=== PATIENT | female | born 1955 | race Caucasian/White ===

== ENCOUNTER → 2020-09-06 | Outpatient (CLI) | payer OTHER, MEDICARE | LOC: SJCVC 09:45 | PROVIDERS: ATTEND Internal Medicine Cardiovascular Disease | DX: R94.31 Abnormal electrocardiogram [ECG] [EKG] (principal); R06.02 Shortness of breath; R94.39 Abnormal result of other cardiovascular function study; I10 Essential (primary) hypertension; E78.00 Pure hypercholesterolemia, unspecified; G47.33 Obstructive sleep apnea (adult) (pediatric); R07.9 Chest pain, unspecified; M19.90 Unspecified osteoarthritis, unspecified site; K21.9 Gastro-esophageal reflux disease without esophagitis; E78.5 Hyperlipidemia, unspecified; G40.909 Epilepsy, unspecified, not intractable, without status epilepticus; M81.0 Age-related osteoporosis without current pathological fracture; F32.9 Major depressive disorder, single episode, unspecified; Z99.89 Dependence on other enabling machines and devices; Z79.899 Other long term (current) drug therapy; Z87.891 Personal history of nicotine dependence; Z72.89 Other problems related to lifestyle; Z88.0 Allergy status to penicillin; Z88.5 Allergy status to narcotic agent ==

== ENCOUNTER 2020-09-18 07:41 | Observation (INO) | payer OTHER, MEDICARE ==
[~2020-09-18] VITALS: Ht 157.5 cm; Wt 90.7 kg
[2020-09-18 08:21] LABS: HEMATOCRIT 38.7 % (37.0-47.0); MCH 25.1 pg (26.0-34.0); MCHC 31.1 g/dL (28.0-37.0); MCV 80.6 fL (80.0-100.0); RBC 4.8 mil/uL (4.20-5.00); RDW 21.3 % (10.5-14.5); WBC 5.9 thou/uL (4.0-11.0)
[2020-09-18 08:25] VITALS: BP 152/71
[2020-09-18 08:36] LABS: CALCIUM 8.9 mg/dL (8.5-10.1); CREATININE 0.7 mg/dL (0.6-1.0); POTASSIUM 4.2 mmol/L (3.5-5.1)
[2020-09-18] MEDS ORDERED: VITAMIN D325 MC1 PO (08:36)
[2020-09-18] MEDS ORDERED: OMEPRAZOLE 20 M20 M1 PO (08:37)
[2020-09-18] MEDS ORDERED: ASPIRIN EC81 M1 PO (08:37)
[2020-09-18] MEDS ORDERED: PHENOBARBITAL32.4 M2 PO (08:38)
[2020-09-18] MEDS ORDERED: PRAVASTATIN SOD40 MG PO (08:39)
[2020-09-18] MEDS ORDERED: DILANTIN100 MG PO (08:39)
[2020-09-18] MEDS ORDERED: EFFEXOR XR75 MG PO (08:40)
[2020-09-18] MEDS ORDERED: BYSTOLIC 5 MG5 MG PO (08:41)
[2020-09-18] MEDS ORDERED: TRIAMCINOLONE A15 G1 TOP (08:43)
--- NOTE | 2020-09-18 09:36 | EKG ---
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: SBUL : 1955 Requested By: Jeffrey Otto Order Number: [id number] MD: Ricky Vaughn Measurements Intervals [place] Rate: 86 P: 63 OR: 166 QRS: 33 QRSD: 84 T: 57 QT: 356 QTc: 426 Interpretive Statements Sinus rhythm Left atrial enlargement Anteroseptal infarct, old Borderline repolarization abnormality Baseline wander in lead(s) III,aVF No previous ECG available for comparison Electronically Signed On 09-18-2020 9:35:57 PLATER APPRENTICE by Ricky Vaughn [email or web address] <ELECTRONICALLY SIGNED> By: Ricky Vaughn MD, [facility] 09/18/20 0935 3 3 Ricky Vaughn MD, [facility] /EPI
--- NOTE | 2020-09-18 16:58 | NUR ---
PT. RESTING IN BED, VERY HELPFUL. SMALL TRACES OF ECCHYMOSIS AT SITE QUARTER SIZED AND MARKED, ONE IS DESCENDING ABOUT HALF INCH LONG AND 1/4 INCH WIDE-ALL ARE MARKED WITH AN INK PEN TO MONITOR IF IT INCREASES. DENIES ANY CHEST PAIN, NO SOB. DAUGHTER AT BEDSIDE-MIKA WILL PICK HER UP IN AM. EATING HER DINNER AND IN GOOD SPIRITS OVERALL.
[2020-09-18 20:01] VITALS: BP 158/83
[2020-09-19 03:51] VITALS: BP 124/75
[2020-09-19 04:48] LABS: HEMATOCRIT 34.3 % (37.0-47.0); HEMOGLOBIN 10.8 gm/dL (12.0-15.0); MCH 25.4 pg (26.0-34.0); MCHC 31.6 g/dL (28.0-37.0); MCV 80.5 fL (80.0-100.0); RBC 4.26 mil/uL (4.20-5.00); RDW 21.1 % (10.5-14.5); WBC 5.8 thou/uL (4.0-11.0)
[2020-09-19 05:01] LABS: ALBUMIN 3.4 g/dL (3.4-5.0); ANION GAP 7 mmol/L (7-16); BUN 8 mg/dL (7-18); CHLORIDE 102 mmol/L (98-107); CO2 31 mmol/L (21-32); CREATININE 0.7 mg/dL (0.6-1.0); GLUCOSE 91 mg/dL (74-106); SGOT 20 U/L (15-37); SGPT 17 U/L (30-65); SODIUM 140 mmol/L (136-145); TOTAL BILIRUBIN 0.2 mg/dL (0.2-1.0); TOTAL PROTEIN 6.6 g/dL (6.4-8.2); TROPONIN-I <0.06 ng/mL (<0.06)
[2020-09-19 05:07] LABS: CALCIUM 8.5 mg/dL (8.5-10.1)
[2020-09-19 07:33] VITALS: BP 122/66
[2020-09-19] MEDS ORDERED: CRESTOR20 MG PO (07:40)
[2020-09-19] MEDS ORDERED: LIPITOR40 MG PO (07:40)
[2020-09-19] MEDS ORDERED: BYSTOLIC 5 MG5 MG PO (07:40)
[2020-09-19] MEDS ORDERED: EFFIENT10 MG PO (07:40)
--- NOTE | 2020-09-19 07:48 | NUR ---
UP INDEPENDENTLY.RIGHT GROIN C/D/I,SOFT,BRUISING NOTED BUT NO HEMATOMA.POC CONTINUED.
--- NOTE | 2020-09-19 09:42 | EKG ---
[address] [address] ELECTROCARDIOGRAM REPORT Name: PAUL CADE Room #: 208-P [facility] M.R.#: [id number] Admission: 09/18/20 Attend Phys: Jeffrey Otto MD, Discharge: Date of : 51 Report #: [id number] [facility] Test Date: 2020-09-19 Test Time: 07:10:16 Pat Name: PAUL CADE Department: Room: 208 P Gender: F Email Production Specialist: LUIS : 1955 Requested By: Debra Malave Order Number: [id number] MD: Ricky Vaughn Measurements Intervals [place] Rate: 78 P: 64 AR: 162 QRS: 33 QRSD: 78 T: 173 QT: 394 QTc: 449 Interpretive Statements Sinus rhythm Abnrm T, consider ischemia, anterolateral lds Compared to ECG 09/18/2020 08:14:05 Possible ischemia now present Atrial abnormality no longer present Myocardial infarct finding no longer present Electronically Signed On 09-19-2020 9:42:09 FORM BUILDER HELPER by Ricky Vaughn [email or web address] <ELECTRONICALLY SIGNED> By: Ricky Vaughn MD, [facility] 09/19/20 0942 0710 0710 Ricky Vaughn MD, [facility] /EPI
[2020-09-19 10:41] VITALS: BP 122/66
--- NOTE | 2020-09-19 11:05 | NUR ---
ASSUMED CARE SHIFT CHANGE. ASSESSMENT CHARTED.MEDS GIVEN. R GROIN SITE BRUISING NOTED, DRSNG DRY WITH DRY DRAINAGE. NO HEMATOMA. DC ORDERS ACKNOWLEDGED AND IMPLEMENTED. IV REMOVED TELE REMOVED. PT LEFT UNIT WITH ALL BELONGINGS.
--- NOTE | 2020-09-19 17:29 | CATHLAB ---
[facility] [place] [address] INVASIVE PROCEDURE REPORT Name: PAUL CADE Room #: 208-P [facility] Patricia Emery#: [id number] Admission: 09/18/20 Attend Phys: Jeffrey Otto MD, Discharge: 09/19/20 Date of : 51 Report #: [id number] THIS REPORT FOR: cc: Eliseo Gary Jeffrey W. DO Mancuso, Gerald M. MD [facility] ~ APPROVED REPORT Study performed: 09/18/2020 08:10:30 Patient Details The patient is a 65 year-old female Event Personnel Jeffrey Otto Lan Engineer, Garth Cagle RN, Liam Camara RTR Scrub, Bashir Jansen RTR Monitor Procedures Performed Art Access - R femoral artery* Steve Access - R femoral vein Right and Left Heart Cath w/or w/o Coronaries 9313327 ELKIN Place w/wo Plasty Single LAD 341670 ELKIN Place w/wo Plasty Single OM [id number] Abdominal Aortography 624315 Hemostasis w/ Mynx Procedure Narrative The Right Groin^ was infiltrated with 1% Lidocaine subcutaneous anesthesia. A PINNACLE 6FR TIF Sheath #[id number] sheath was inserted into the RFA^. Coronary angiography was performed using coronary diagnostic catheters. The right coronary system was accessed and visualized with a JR4 catheter. The left coronary system was accessed and visualized with a JL4 catheter. The left ventricle was accessed and visualized with a PIGTAIL catheter. Left ventriculogram was performed in 30 degree projection. An aortogram of the abdominal aorta was performed. Closure device was deployed with a 6 Fr MYNXGRIP 6/7F #[id number]. Hemostasis was obtained with manual pressure following sheath removal without any complications. The patient tolerated the procedure well and there were no complications associated with the procedure. There was no hematoma. Intraoperative Conscious Sedation Sedation start time: 1023 Case end Time: 1136 Fentanyl mcg Versed mg Fluoro Time: 11.20 minutes [facility] [address] [place] [address] INVASIVE PROCEDURE REPORT Name: PAUL CADE Room #: 208-P [facility].#: [id number] Admission: 09/18/20 Attend Phys: Jeffrey Otto, Discharge: 09/19/20 Date of : 51 Report #: [id number] Dose: DAP 85901.90 cGycm2 2317 mGy Contrast Type and Amount: Omnipaque 260 ml Hemodynamics The right atrial mean pressure is 12 mmHg. The right ventricular pressure is 37/6 mmHg. The pulmonary artery pressure is 39/22 mmHg with a mean of 27 mmHg. The mean pulmonary capillary wedge pressure is 17 mmHg. The aortic pressure is 152/64 mmHg with a mean of 62 mmHg. The left ventricular pressure is 168/14 mmHg with a mean of mmHg. The left ventricular end diastolic pressure is 30 mmHg. The cardiac output and index were assessed using thermodilution. The cardiac output using thermo method is 4.95 L/min. PCI Technique Lesion Percutaneous coronary intervention was performed on the proximal left anterior descending artery segment. A LAUNCHER 6FR EBU 3.5 #[id number] Guide Catheter was used to engage the ostium. A Luge Wire .014 x 182CM #[id number] Interventional Guidewire was used to cross the lesion. BALLOON DILATION A Balloon catheter Sprinter OTW 2.5 x 12 #[id number] was inserted and inflated up to 6.00atm for 9seconds. Additional Inflation: 14.00atm for 17seconds. STENT DEPLOYMENT A drug-eluting stent RESOLUTE JUWAN OTW 3.5 X 12 #[id number] was inserted and inflated up to 10.00atm for 21seconds. Additional Inflation: 16.00atm for 24seconds. PCI Technique Lesion 2 Percutaneous Coronary Intervention was performed on the first obtuse marginal branch segment. A LAUNCHER 6FR EBU 3.5 #[id number] Guide Catheter was used to engage the ostium. A Luge Wire .014 x 182CM #[id number] Interventional Guidewire was used to cross the lesion. Balloon Dilation A Balloon catheter Sprinter OTW 2.5 x 12 #[id number] was inserted and inflated up to 6.00atm for 20seconds. Additional Inflation: 10.00atm for 30seconds. Stent Deployment A drug-eluting stent RESOLUTE JUWAN OTW 2.5 X 15 #[id number] was inserted and inflated up to 10.00atm for 26seconds. Additional Inflation: 14.00atm for 26seconds. [facility] [place] [address] INVASIVE PROCEDURE REPORT Name: PAUL CADE Room #: 208-P [facility] M.R.#: [id number] Admission: 09/18/20 Attend Phys: Jeffrey Otto, Discharge: 09/19/20 Date of : 51 Report #: [id number] Conclusion #1. Successful PTCA stent of the proximal LAD subtotal lesion successfully stented with a 3.5 x 12 resolute [place] postdilated 3.6 mm RADHA grade III flow. #2 successful PTCA of the proximal circumflex OM lesion placing a 2.5 x 15 resolute [place] postdilated 2.6 mm RADHA grade III flow #3 left main free of disease giving rise to the LAD and circumflex. #4 dominant right coronary with mild irregularities 30% mid vessel lesion. Anatomically dominant. PDA well preserved. #5 normal left jugular size and systolic function EF 60%. #6 abdominal aortogram revealing intact abdominal aorta without evidence of aneurysm. Brisk distal flow. Recommendations and plan: Continue aggressive risk factor modification. Dual antiplatelet therapy has been initiated. Patient transferred to CCU to follow post coronary stent protocol. Hemodynamically stable and pain-free. <ELECTRONICALLY SIGNED> By: Jeffrey Otto MD, [facility] 09/19/201727 27 27 Jeffrey Otto MD, FACC /INF
== END 2020-09-19 11:14 | disposition home or self-care (01) ==
LOC: CATH 07:41 → 2N 16:40 → CATH 16:42 → 2N 16:43
PROVIDERS: Nurse Practitioner Adult Health; ADMIT Internal Medicine Cardiovascular Disease; ATTEND Internal Medicine Cardiovascular Disease
DX: I25.10 Atherosclerotic heart disease of native coronary artery without angina pectoris (principal); E78.00 Pure hypercholesterolemia, unspecified; I10 Essential (primary) hypertension; G47.33 Obstructive sleep apnea (adult) (pediatric); Z79.82 Long term (current) use of aspirin; Z79.899 Other long term (current) drug therapy